=== PATIENT | female | born 1985 | race Caucasian/White ===

== ENCOUNTER 2024-06-06 13:39 | Emergency (ER) | payer OTHER ==
[2024-06-06] MEDS ORDERED: KETOROLAC 30 MG/ML INJ ONE (14:06)
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
[2024-06-06 15:23] VITALS: O2SAT 100
[2024-06-06 15:25] VITALS: BP 123/83; TEMP 98
== END 2024-06-06 15:16 | disposition home or self-care (01) ==
LOC: ER 13:39
DX: S16.1XXA Strain of muscle, fascia and tendon at neck level, initial encounter (principal); S09.90XA Unspecified injury of head, initial encounter; V49.49XA Driver injured in collision with other motor vehicles in traffic accident, initial encounter
CPT/HCPCS: 70450; 72125; 96372; 99285